=== PATIENT | male | born 2005 | race Caucasian/White ===

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

== ENCOUNTER 2024-03-10 17:34 | Emergency (ER) | payer SELFPAY ==
--- NOTE | ~2024-03-10 | CT_ITS ---
EXAMINATION: CT CERVICAL SPINE WITHOUT CONTRAST CLINICAL INFORMATION: Pain. Injury. COMPARISON: None available. TECHNIQUE: Noncontrast computed tomography of the cervical spine was performed. This CT examination was performed using dose optimization techniques as appropriate, variously including the following: *Automated exposure control *Adjustment of mA and/or kV according to patient size (this includes techniques or standardized protocols for targeted exams where dose is matched to indication/reason for exam; i.e. extremities or head) *Use of iterative reconstruction technique DLP: 901 mGy-cm FINDINGS: There is straightening of the cervical lordosis. The vertebral bodies and posterior elements are anatomically aligned. The C1-C2 relationship is normal. The dens is intact. The atlantooccipital relationship is normal. Vertebral body heights are preserved. Intervertebral disc space heights are preserved. Prevertebral soft tissue is normal in appearance. Paraspinal soft tissue is normal in appearance. There is no acute cervical spine fracture. The lung apices are clear. The thyroid gland is normal in appearance. CT/CT cervical spine wo IV con IMPRESSION: No acute osseous cervical spine abnormality. Fleischner guidelines were followed. Electronically signed by: Stewart Calvin DO 03/10/2024 07:18 PM EDT
--- NOTE | ~2024-03-10 | CT_ITS ---
EXAMINATION: CT HEAD WITHOUT CONTRAST CLINICAL INFORMATION: Pain. Injury. COMPARISON: None available. TECHNIQUE: Contiguous axial imaging was performed from the skull base to vertex without intravenous administration of contrast. This CT examination was performed using dose optimization techniques as appropriate, variously including the following: *Automated exposure control *Adjustment of mA and/or kV according to patient size (this includes techniques or standardized protocols for targeted exams where dose is matched to indication/reason for exam; i.e. extremities or head) *Use of iterative reconstruction technique DLP: 901 mGy-cm FINDINGS: There is no acute intracranial hemorrhage. There is no evidence of acute/subacute cerebral or cerebellar infarction. There is no midline shift or mass effect. There is no extra-axial fluid collection. The ventricles are normal in size. The orbits are symmetric and within normal limits. The calvarium is intact. There is a moderate degree of mucosal thickening within the left frontal sinus and several anterior left ethmoid air cells. The nasal septum is deviated towards the left. The mastoid air cells are clear. CT/CT head/brain wo IV con IMPRESSION: No acute intracranial pathology. Paranasal sinus mucosal disease. Electronically signed by: Stewart Calvin DO 03/10/2024 07:07 PM EDT
[2024-03-10 17:45] VITALS: BP 123/72; BP 140/90; PULSE 66; PULSE 80; RESP 18; TEMP 36.5; O2SAT 95; O2SAT 96; BMI 19.0
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
--- NOTE | 2024-03-10 18:15 | PC.NURSE ---
cut to left hand cleaned
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
[2024-03-10 19:48] VITALS: BP 96/52; PULSE 64; RESP 16; TEMP 36.8; O2SAT 97
[2024-03-10] MEDS: Albuterol Sulfate (0.083%) 2.5 MG/3 ML VIAL.NEB 5 MG INHALE (19:57)
[2024-03-10 20:02] VITALS: PULSE 56; RESP 16; O2SAT 99
[2024-03-10 20:14] VITALS: BP 96/52; PULSE 56; RESP 16; TEMP 36.8; O2SAT 97
== END 2024-03-10 20:40 ==
PROVIDERS: Emergency Provider Emergency Medicine
DX: S79.919A Unspecified injury of unspecified hip, initial encounter (principal); S19.9XXA Unspecified injury of neck, initial encounter; M54.2 Cervicalgia; R51.9 Headache, unspecified; Y33.XXXA Other specified events, undetermined intent, initial encounter; Y93.89 Activity, other specified; Y92.89 Other specified places as the place of occurrence of the external cause; Y99.8 Other external cause status
CPT/HCPCS: 70450; 72125; 94640; 99284